=== PATIENT | female | born 1945 | race Caucasian/White ===

== ENCOUNTER 2016-08-08 06:00 | Day surgery (SDC) | payer MEDICARE, OTHER ==
[~2016-08-08 06:00] MED LIST: ASPIR-LOW81 M1 PO; ASPIR-TRIN325 M2 PO; CALCIUM + VITA1 EAC4 PO; CLARITIN10 M6 PO; COLACE100 M1 PO; ECOTRIN325 M2 PO; FERROUS GLUCON325 M3 PO; FISH OIL 11000 MG/CA PO; HAIR, SKIN & N1 EAC1 PO; MULTIVITAMINS1 EAC6 PO; OMEGA 3 1,0001 EAC1 PO; POTASSIUM GLUC500 MG PO; PRAVACHOL40 M1 PO; PROBIOTIC1 EAC6 PO; VITAMIN C1000 M1 PO; VITAMIN C500 M3 PO; ZYRTEC10 M7 PO
[2016-08-08 06:52] LABS: BASO % 0.5 % (0-2); EOS % 1.7 % (0-7); EOSINOPHIL ABSOLUTE COUNT 0.1 tho/cmm (0.0-0.7); HCT-HEMATOCRIT 45.4 % (34.0-49.0); HGB-HEMOGLOBIN 15.5 gm/dl (12.0-15.5); IMMATURE GRANULOCYTES ABSOLUTE 0.01 tho/cmm (0-0.03); IMMATURE GRANULOCYTES PERCENT 0.2 % (0-0.3); LYMPH % 32.8 % (20-45); LYMPH ABSOLUTE COUNT 2.2 tho/cmm (0.8-4.5); MCH (MEAN CORPUSCULAR HGB) 31.6 pg (28.0-32.0); MCHC MEAN CORPUSCULAR HGB CONC 34.1 % (32.0-36.0); MCV (MEAN CELL VOLUME) 92.5 fl (82.0-96.0); MEAN PLATELET VOLUME 10.4 cmc (9.4-12.4); MONO % 10.8 % (0-12); MONOCYTE ABSOLUTE COUNT 0.7 tho/cmm (0.0-1.2); NEUTROPHIL ABSOLUTE COUNT 3.6 tho/cmm (1.6-8.0); NEUTROPHIL-AUTOMATED 3.6 tho/cmm (1.6-8.0); PLATELET COUNT 264 tho/cmm (150-450); RED BLOOD COUNT 4.91 mil/cmm (4.00-5.20); RED CELL DISTRIBUTION WIDTH 13.1 % (12.4-16.4); WHITE BLOOD COUNT 6.6 tho/cmm (4.0-10.0)
[2016-08-08 07:04] LABS: ANION GAP 12 mmol/L (0-20); BLOOD UREA NITROGEN 10 mg/dl (6-24); CALCIUM 9.3 mg/dl (8.5-10.5); CARBON DIOXIDE-VENOUS 29 mmol/L (22-32); CHLORIDE 106 mmol/l (96-110); CREATININE 0.74 mg/dl (0.50-1.10); GLUCOSE 90 mg/dL (70-110); POTASSIUM 3.7 mmol/L (3.7-5.1); SODIUM 143 mmol/L (135-145); eGFR VALUE FOR BLACK >90 mL/Min
== END 2016-08-08 09:27 ==
LOC: ENDOS 06:00 → SHSA 06:05 → ENDOS 08:35
PROVIDERS: Anesthesiology
PROC: 0DJD8ZZ Inspection of Lower Intestinal Tract, Via Natural or Artificial Opening Endoscopic (ICD-10-PCS; principal; 2016-08-08)
DX: Z12.11 Encounter for screening for malignant neoplasm of colon (principal); K57.30 Diverticulosis of large intestine without perforation or abscess without bleeding; Z79.899 Other long term (current) drug therapy; Z86.010 Personal history of colon polyps; Z88.8 Allergy status to other drugs, medicaments and biological substances